=== PATIENT | female | born 1955 | race Caucasian/White ===

== ENCOUNTER → 2016-05-11 | Outpatient (CLI) | payer MEDICARE ==
[2016-05-11 14:57] LABS: HEMATOCRIT 40.1 % (36.0-47.0); HEMOGLOBIN 13.3 g/dL (12.0-15.5); HGB HCT DIFFERENCE -0.2; MEAN CORPUSCULAR HGB CONC 33.2 g/dL (32.0-36.0); MEAN CORPUSCULAR VOLUME 93 fl (80-97); RED CELL DISTRIBUTION WIDTH 13.5 % (11.5-14.0)
[2016-05-11 15:06] LABS: APPEARANCE,URINE CLEAR; BILIRUBIN,URINE NEGATIVE (NEGATIVE); GLUCOSE, URINE NEGATIVE (NEGATIVE); KETONES,URINE NEGATIVE (NEGATIVE); LEUKOCYTE ESTERASE,URINE NEGATIVE (NEGATIVE); NITRITE,URINE NEGATIVE (NEGATIVE); PROTEIN,URINE NEGATIVE (NEGATIVE); URINE SPECIFIC GRAVITY 1.008; UROBILINOGEN,URINE NEGATIVE mg/dL (<2.0)
[2016-05-11 15:23] LABS: ALANINE AMINOTRANSFERASE 18 U/L (9-52); ALBUMIN 4.6 g/dL (3.5-5.0); ALKALINE PHOSPHATASE 79 U/L (38-126); ANION GAP 11 (5-19); ASPARTATE AMINO TRANSFERASE 23 U/L (14-36); BILIRUBIN,TOTAL 0.4 mg/dL (0.2-1.3); BLOOD UREA NITROGEN 10 mg/dL (7-20); CALCIUM 9.5 mg/dL (8.4-10.2); CARBON DIOXIDE 25 mmol/L (22-30); CHLORIDE 105 mmol/L (98-107); CREATININE RESULT 0.78 mg/dL (0.52-1.25); GLUCOSE 75 mg/dL (75-110); POTASSIUM 4.4 mmol/L (3.6-5.0); SODIUM 141.2 mmol/L (137-145); TOTAL PROTEIN 7.3 g/dL (6.3-8.2)
[2016-05-11 15:28] LABS: ALCOHOL < 10 mg/dL (NONE DETECTED)
[2016-05-11 15:36] LABS: URINE BARBITURATES SCREEN NEGATIVE; URINE OPIATES LOW NEGATIVE; URINE PHENCYCLIDINE SCREEN NEGATIVE
[2016-05-11 15:46] LABS: URINE METHADONE SCREEN UNCONFIRMED POSITIVE
== END ==
LOC: OD 13:31
PROVIDERS: ATTEND Nurse Practitioner Psychiatric/Mental Health
DX: F41.1 Generalized anxiety disorder (principal)
CPT/HCPCS: 36415; 80053; 80307; 81001; 84443; 85027

== ENCOUNTER → 2016-09-14 | Outpatient (CLI) | payer MEDICARE ==
--- NOTE | 2016-09-14 13:07 | RADIOLOGY REPORT (SQ) ---
EXAM DESCRIPTION: CHEST PA/LAT COMPLETED DATE/TIME: 09/14/2016 12:35 pm REASON FOR STUDY: BRONCHITIS VS PNEUMONIA COMPARISON: 01/13/2016 EXAM PARAMETERS: NUMBER OF VIEWS: two views TECHNIQUE: Digital Frontal and Lateral radiographic views of the chest acquired. RADIATION DOSE: NA LIMITATIONS: none FINDINGS: LUNGS AND PLEURA: No opacities, masses or pneumothorax. No pleural effusion. MEDIASTINUM AND HILAR STRUCTURES: No masses or contour abnormalities. HEART AND VASCULAR STRUCTURES: Heart normal size. No evidence for failure. BONES: No acute findings. HARDWARE: None in the chest. OTHER: No other significant finding. IMPRESSION: NO SIGNIFICANT RADIOGRAPHIC FINDING IN THE CHEST. TECHNICAL DOCUMENTATION: JOB ID: [id number] [employer]- All Rights Reserved
[2016-09-14 13:16] LABS: ABSOLUTE EOSINOPHILS # (AUTO) 0.4 10^3/uL (0.0-0.6); ABSOLUTE LYMPHOCYTES (AUTO) 3.1 10^3/uL (0.5-4.7); ABSOLUTE MONOCYTES (AUTO) 0.5 10^3/uL (0.1-1.4); ABSOLUTE NEUT (AUTO) 4.3 10^3/uL (1.7-8.2); BASOPHILS % (AUTO) 0.5 % (0-2); EOSINOPHILS % (AUTO) 4.8 % (0-6); HEMATOCRIT 42.7 % (36.0-47.0); HEMOGLOBIN 14.2 g/dL (12.0-15.5); HGB HCT DIFFERENCE -0.1; LYMPHOCYTES % (AUTO) 37.2 % (13-45); MEAN CORPUSCULAR HGB CONC 33.3 g/dL (32.0-36.0); MEAN CORPUSCULAR VOLUME 90 fl (80-97); MONOCYTES % (AUTO) 5.8 % (3-13); RED BLOOD COUNT 4.74 10^6/uL (3.72-5.28); RED CELL DISTRIBUTION WIDTH 14.3 % (11.5-14.0); SEGMENTED NEUTROPHILS % (AUTO) 51.7 % (42-78); WHITE BLOOD COUNT 8.3 10^3/uL (4.0-10.5)
[2016-09-14 13:37] LABS: ALANINE AMINOTRANSFERASE 26 U/L (9-52); ALBUMIN 4.4 g/dL (3.5-5.0); ALKALINE PHOSPHATASE 79 U/L (38-126); ANION GAP 12 (5-19); ASPARTATE AMINO TRANSFERASE 35 U/L (14-36); BILIRUBIN,DIRECT 0.3 mg/dL (0.0-0.4); BILIRUBIN,TOTAL 0.4 mg/dL (0.2-1.3); BLOOD UREA NITROGEN 15 mg/dL (7-20); CALCIUM 9.9 mg/dL (8.4-10.2); CARBON DIOXIDE 21 mmol/L (22-30); CHLORIDE 105 mmol/L (98-107); CREATININE RESULT 0.62 mg/dL (0.52-1.25); GLUCOSE 93 mg/dL (75-110); POTASSIUM 4.4 mmol/L (3.6-5.0); SODIUM 138.2 mmol/L (137-145); TOTAL PROTEIN 7.3 g/dL (6.3-8.2)
== END ==
LOC: RAD 12:21
PROVIDERS: ATTEND Obstetrics & Gynecology
DX: K52.9 Noninfective gastroenteritis and colitis, unspecified (principal); E86.0 Dehydration; J40 Bronchitis, not specified as acute or chronic
CPT/HCPCS: 36415; 71020; 80053; 85025

== ENCOUNTER 2016-12-17 21:58 | Emergency (ER) | payer MEDICARE ==
[2016-12-17] MEDS ORDERED: OXYCODONE HCL IR 5 MG TABLET PO ONE (22:47)
--- NOTE | 2016-12-17 22:48 | ER Document Report ---
HPI - HPI Patient complains to provider of: right ankle injury Pain Level: 3 Context: Patient is a 61-year-old female comes emergency department by EMS for chief complaint of right ankle injury. She states she was walking her dog and she inverted her right ankle accidentally because it was dark. She denies knee pain , hip pain, or any other injuries. She does not take a blood thinner. Past medical history of hypothyroidism, hyperlipidemia, and chronic pain in her back and hips. She also has fractured the same ankle multiple times. - REPRODUCTIVE LMP: na Reproductive: DENIES: : - DERM Skin Color: Normal Past Medical History - General Information source: Patient - Social History Smoking Status: Never Smoker Drug Abuse: None Lives with: Family Family History: Reviewed & Not Pertinent Patient has suicidal ideation: No Patient has homicidal ideation: No - Past Medical History Cardiac Medical History: Reports: Hx Coronary Artery Disease, Hx Heart Attack - possible. Denies: Hx Congestive Heart Failure, Hx Hypertension Pulmonary Medical History: Reports: Hx Bronchitis, Hx COPD Denies: Hx Asthma, Hx Pneumonia, Hx Tuberculosis Neurological Medical History: Denies: Hx Seizures Endocrine Medical History: Reports: Hx Graves' Disease - Treated with I-131, Hx Hypothyroidism Renal/ Medical History: Denies: Hx End Stage Renal Disease, Hx Kidney Stones, Hx Peritoneal Dialysis GI Medical History: Reports: Hx Hepatitis - HEP C.. Denies: Hx Cirrhosis, Hx Gastroesophageal Reflux Disease, Hx Ulcer Musculoskeltal Medical History: Reports Hx Arthritis - Degenerative disc disease and osteoarthritis., Denies Hx Multiple Sclerosis Psychiatric Medical History: Reports: Hx Anxiety, Hx Depression - lexapro, wellbutrin Denies: Hx Bipolar Disorder, Hx Schizophrenia Infectious Medical History: Reports: Hx Hepatitis - HEP C. Past Surgical History: Reports: Hx Coronary Stent, Hx Orthopedic Surgery - left ankle, Hx Thyroid Surgery - radioactive Isotopes, Hx Tonsillectomy - Immunizations Immunizations up to date: Yes Hx Diphtheria, Pertussis, Tetanus Vaccination: Yes Vertical Provider Document - CONSTITUTIONAL General Appearance: WD/WN, No Apparent Distress - INFECTION CONTROL TRAVEL OUTSIDE OF THE [place] IN LAST 30 DAYS: No - HEENT HEENT: Atraumatic, Normocephalic - NECK Neck: Normal Inspection - RESPIRATORY Respiratory: Breath Sounds Normal, No Respiratory Distress O2 Sat by Pulse Oximetry: 96 - CARDIOVASCULAR Cardiovascular: Regular Rate, Regular Rhythm - GI/ABDOMEN Gastrointestinal: Abdomen Soft, Abdomen Non-Tender - BACK Back: Normal Inspection - MUSCULOSKELETAL/EXTREMETIES Musculoskeletal/Extremeties: Tender - Tenderness and soft tissue swelling mainly over the right lateral malleolus and slightly over the dorsal aspect of the foot at the ankle. No open wounds, normal capillary refill and sensation, normal foot and ankle exam otherwise, normal leg, knee, hip exam. - DERM Integumentary: Warm, Dry Course - Re-evaluation Re-evalutation: X-ray questionable for new fracture versus old fracture which did not heal. There is soft tissue swelling. Because of patient's injury, pain, and soft tissue swelling the area will be treated for suspected new fracture. Immobilizing splint placed, patient states that she has orthopedic she plans on following up with, she was given a CD of her report. Patient is already on pain management and in a contract with her primary care provider. Discussed follow-up and return precautions. Patient states understanding and agreement. - Vital Signs Vital signs: Temp Pulse Resp BP Pulse Ox 97.7 F 83 20 119/74 96 12/17/16 22:04 12/17/16 22:04 12/17/16 22:04 12/17/16 22:04 12/17/16 22:04 Procedures - Immobilization Right ankle Pre-Proc Neuro Vasc Exam: Normal Immobilizer type: Posterior ankle Performed by: RN Post-Proc Neuro Vasc Exam: Normal Alignment checked and good: Yes Discharge - Discharge Clinical Impression: Right ankle injury Qualifiers: Encounter type: initial encounter Qualified Code(s): S99.911A - Unspecified injury of right ankle, initial encounter Condition: Stable Disposition: HOME, SELF-CARE Additional Instructions: The injury, exam, soft tissue swelling, and questionable new versus non-healed fracture is concerning for a new fracture. Wear the splint, follow-up with orthopedics in the next several days for additional evaluation and management. Return to emergency department for any concerning symptoms. Referrals: MELVA SNOW MD [Primary Care Provider] - Follow up as needed ORTHOPEDICS [Provider Group] - Follow up in 3-5 days
--- NOTE | 2016-12-17 23:25 | RADIOLOGY REPORT (SQ) ---
EXAM DESCRIPTION: ANKLE RIGHT COMPLETE COMPLETED DATE/TIME: 12/17/2016 11:10 pm REASON FOR STUDY: Pain s/p injury COMPARISON: 08/24/2015 NUMBER OF VIEWS: Three views. TECHNIQUE: AP, lateral, and oblique radiographic images acquired of the right ankle. LIMITATIONS: None. FINDINGS: MINERALIZATION: Normal. BONES: Possible re- fracture of the inferior aspect of the lateral malleolus versus chronic partial n onunion. No dislocation. No worrisome bone lesions. JOINTS: Moderate joint effusion. SOFT TISSUES: Moderate lateral soft tissue swelling. No foreign body. OTHER: No other significant finding. IMPRESSION: Possible re- fracture of the inferior aspect of the lateral malleolus versus chronic par tial nonunion. Moderate joint effusion. TECHNICAL DOCUMENTATION: JOB ID: [id number] [employer]- All Rights Reserved
--- NOTE | 2016-12-17 23:27 | RADIOLOGY REPORT (SQ) ---
EXAM DESCRIPTION: HIP RIGHT AP/LATERAL COMPLETED DATE/TIME: 12/17/2016 11:10 pm REASON FOR STUDY: Chronic pain COMPARISON: None. NUMBER OF VIEWS: Two views. TECHNIQUE: AP pelvis and additional frog-leg view of the right hip. LIMITATIONS: None. FINDINGS: MINERALIZATION: Normal. RIGHT HIP: No fracture or dislocation. No worrisome bone lesions. LEFT HIP: No fracture or dislocation. No worrisome bone lesions. PUBIS AND ISCHIUM: No fracture. PELVIS: No fracture. SACRUM: No fracture or dislocation. No worrisome bone lesions. LOWER LUMBAR SPINE: No fracture or dislocation. No worrisome bone lesions. No significant disc disea se. SOFT TISSUES: No findings. OTHER: No other significant finding. IMPRESSION: NO RADIOGRAPHIC EVIDENCE OF ACUTE INJURY. TECHNICAL DOCUMENTATION: JOB ID: [id number] [employer]- All Rights Reserved
[2016-12-18] MEDS ORDERED: HYDROMORPHONE HCL INJ/PF 2 MG/ML AMPULE IM ONE (00:38)
[2016-12-18 01:59] VITALS: BP 121/78
== END 2016-12-18 01:30 | disposition home or self-care (01) ==
LOC: ER 21:58
PROC: 2W3QX1Z Immobilization of Right Lower Leg using Splint (ICD-10-PCS; principal; 2016-12-17)
DX: S99.919A Unspecified injury of unspecified ankle, initial encounter (principal); X50.0XXA Overexertion from strenuous movement or load, initial encounter; Y93.K1 Activity, walking an animal; Y92.009 Unspecified place in unspecified non-institutional (private) residence as the place of occurrence of the external cause; I25.10 Atherosclerotic heart disease of native coronary artery without angina pectoris; I10 Essential (primary) hypertension; J44.9 Chronic obstructive pulmonary disease, unspecified; Z95.5 Presence of coronary angioplasty implant and graft; Z87.81 Personal history of (healed) traumatic fracture; Z98.890 Other specified postprocedural states
CPT/HCPCS: 99284; 96372; 73610; 73502; 29515; J1170; A9270

== ENCOUNTER 2017-10-28 16:20 | Emergency (ER) | payer MEDICARE ==
[2017-10-28 16:28] VITALS: BP 136/79
[2017-10-28] MEDS ORDERED: IPRATROPIUM/ALBUTEROL 0.5-2.5 MG/3 ML AMPUL NEB ONE (16:51)
[2017-10-28] MEDS ORDERED: BENZONATATE 100 MG CAPSULE PO ONE (16:52)
[2017-10-28] MEDS ORDERED: PREDNISONE 20 MG TABLET PO ONE (16:52)
[2017-10-28] MEDS ORDERED: LEVOFLOXACIN 500 MG TABLET PO ONE (16:52)
--- NOTE | 2017-10-28 16:57 | ER Document Report ---
ED General - General Chief Complaint: Productive Cough Stated Complaint: COUGH Time Seen by Provider: 10/28/17 16:41 Notes: 62-year-old female PMH COPD here with complaints of productive cough (green sputum) over the past few weeks. She did see her PCP and PCP placed her on Keflex which she has finished and her symptoms have not improved. She has tried her home albuterol inhaler with not much relief. She no longer has any fevers or chills however the cough persists and it is bothering her. No shortness of breath or chest pain/tightness. She does still smoke 1-1/2 packs daily. TRAVEL OUTSIDE OF THE [place] IN LAST 30 DAYS: No - Related Data Allergies/Adverse Reactions: haloperidol [From Haldol] Allergy (Verified 10/28/17 16:22) latex [Latex] Allergy (Verified 10/28/17 16:21) adhesive [Adhesive] Adverse Reaction (Verified 10/28/17 16:21) chromic sutures Allergy (Intermediate, Uncoded 08/24/15 17:39) developed an absess Past Medical History - Social History Smoking Status: Current Every Day Smoker Chew tobacco use (# tins/day): No Frequency of alcohol use: None Drug Abuse: None Family History: Reviewed & Not Pertinent Patient has suicidal ideation: No Patient has homicidal ideation: No - Past Medical History Cardiac Medical History: Reports: Hx Coronary Artery Disease, Hx Heart Attack - possible. Denies: Hx Congestive Heart Failure, Hx Hypertension Pulmonary Medical History: Reports: Hx Bronchitis, Hx COPD Denies: Hx Asthma, Hx Pneumonia, Hx Tuberculosis Neurological Medical History: Denies: Hx Seizures Endocrine Medical History: Reports: Hx Graves' Disease - Treated with I-131, Hx Hypothyroidism Renal/ Medical History: Denies: Hx End Stage Renal Disease, Hx Kidney Stones, Hx Peritoneal Dialysis GI Medical History: Reports: Hx Hepatitis - HEP C.. Denies: Hx Cirrhosis, Hx Gastroesophageal Reflux Disease, Hx Ulcer Musculoskeletal Medical History: Reports Hx Arthritis - Degenerative disc disease and osteoarthritis., Denies Hx Multiple Sclerosis Psychiatric Medical History: Reports: Hx Anxiety, Hx Depression - lexapro, wellbutrin Denies: Hx Bipolar Disorder, Hx Schizophrenia Infectious Medical History: Reports: Hx Hepatitis - HEP C. Past Surgical History: Reports: Hx Coronary Stent, Hx Orthopedic Surgery - left ankle, Hx Thyroid Surgery - radioactive Isotopes, Hx Tonsillectomy - Immunizations Immunizations up to date: Yes Hx Diphtheria, Pertussis, Tetanus Vaccination: Yes Review of Systems - Review of Systems Notes: See history of present illness for pertinent positive review of systems; otherwise all review of systems have been reviewed and are negative Physical Exam - Vital signs Vitals: Temp Pulse Resp BP Pulse Ox 99.0 F 77 17 136/79 H 95 10/28/17 16:26 10/28/17 16:26 10/28/17 16:26 10/28/17 16:26 10/28/17 16:26 - Notes Notes: PHYSICAL EXAMINATION: GENERAL: Well-appearing and in no acute distress. HEAD: Atraumatic, normocephalic. EYES: Pupils equal round and reactive to light, extraocular movements intact, sclera anicteric, conjunctiva are normal. ENT: nares patent, oropharynx clear without exudates. Moist mucous membranes. NECK: Normal range of motion, supple without lymphadenopathy LUNGS: CTAB and equal. Minimal end expiratory wheezes bilaterally but no rales or rhonchi. HEART: Regular rate and rhythm without murmurs ABDOMEN: Soft, no tenderness. No facial grimacing/wincing upon palpation. No guarding, no rebound. EXTREMITIES: Normal range of motion, no pitting edema. No cyanosis. NEUROLOGICAL: Cranial nerves grossly intact. Normal sensory/motor exams. PSYCH: Normal mood, normal affect. SKIN: Warm, Dry, normal turgor, no rashes or lesions noted Course - Re-evaluation Re-evalutation: 10/28/17 16:55 MEDICAL DECISION MAKING: Concern for COPD exacerbation versus pneumonia versus bronchitis We will give a neb treatment here and Levaquin/prednisone She has taken Levaquin in past with complete resolution of similar symptoms For this reason, I will prescribe her Levaquin prednisone for her symptoms Instructed patient on fever control with Tylenol and/or (if applicable) Motrin Also discussed keeping hydrated with water or Gatorade/Pedialyte Instructed follow-up PCP next day or few Patient understands and agrees to the plan of care - Vital Signs Vital signs: Temp Pulse Resp BP Pulse Ox 99.0 F 77 17 136/79 H 95 10/28/17 16:26 10/28/17 16:26 10/28/17 16:26 10/28/17 16:26 10/28/17 16:26 Discharge - Discharge Clinical Impression: Cough Condition: Good Disposition: HOME, SELF-CARE Additional Instructions: You were seen in the emergency department at [facility]. Finish the antibiotics/steroids and do not skip any doses. Please followup with your primary physician in the next few days for further management/evaluation. Please return to the emergency department for worsening of symptoms or any symptom that you deem to be concerning or life-threatening. Thank you for allowing us to be part of your care. Prescriptions: Benzonatate [Tessalon Perles 100 mg Capsule] 100 mg PO Q8HP PRN #40 capsule PRN Reason: Levofloxacin [Levaquin 750 mg Tablet] 750 mg PO DAILY #10 tablet Prednisone [Deltasone 20 mg Tablet] 3 tab PO DAILY 4 Days tablet Referrals: MELVA SNOW MD [Primary Care Provider] - Follow up as needed
[2017-10-28] MEDS ORDERED: ONDANSETRON 4 MG TAB.RAPDIS PO ONE (17:06)
== END 2017-10-28 17:21 | disposition home or self-care (01) ==
LOC: ER 16:20
DX: R05 Cough (principal); I25.10 Atherosclerotic heart disease of native coronary artery without angina pectoris; J44.9 Chronic obstructive pulmonary disease, unspecified; Z95.5 Presence of coronary angioplasty implant and graft; F17.200 Nicotine dependence, unspecified, uncomplicated; Z88.8 Allergy status to other drugs, medicaments and biological substances; Z91.040 Latex allergy status
CPT/HCPCS: 94640; 99283; A9270 ×5; J7512; J7620; S0119

== ENCOUNTER 2017-11-01 12:01 | Emergency (ER) | payer MEDICARE ==
[2017-11-01] MEDS ORDERED: ACTIVATED CHARCOAL 25 GM BOTTLE PO ONE ×2 (12:17→12:30)
[2017-11-01] MEDS ORDERED: NORMAL SALINE 1000 ML 1,000 ML IV ONE (12:18)
--- NOTE | 2017-11-01 12:20 | ER Document Report ---
ED Medical Screen (RME) - General Chief Complaint: Possible Overdose Stated Complaint: POSSIBLE OVERDOSE Time Seen by Provider: 11/01/17 12:11 TRAVEL OUTSIDE OF THE [place] IN LAST 30 DAYS: No - HPI Patient complains to provider of: Intentional overdose Notes: 11/01/17 12:18 Patient is a 62-year-old female who presents to the emergency room after intentional overdose of approximately 20 gabapentin 600 mg and 12 BuSpar 15 mg, patient did this approximately 1 hour prior to arrival in the department, admits that it was a suicide attempt as she is feeling overwhelmed, helpless and hopeless, patient admits to being a recovering addict who has had a recent relapse and is using basically anything she can get her hands on on the street I placed up call to [place] poison control, spoke with Beronica, who recommends patient receive activated charcoal, had EKG, cardiac monitoring, 4 hour Tylenol ingestion levels, salicylate level, electrolytes, concerns for gabapentin ingestion 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 The patient will be seen and fully evaluated, including a full history and physical exam, by a provider ( in Main ED or Fast Track) when a room becomes available. - Related Data Allergies/Adverse Reactions: haloperidol [From Haldol] Allergy (Verified 10/28/17 16:22) latex [Latex] Allergy (Verified 10/28/17 16:21) adhesive [Adhesive] Adverse Reaction (Verified 10/28/17 16:21) chromic sutures Allergy (Intermediate, Uncoded 08/24/15 17:39) developed an absess Past Medical History - Past Medical History Cardiac Medical History: Reports: Hx Coronary Artery Disease, Hx Heart Attack - possible. Denies: Hx Congestive Heart Failure, Hx Hypertension Pulmonary Medical History: Reports: Hx Bronchitis, Hx COPD Denies: Hx Asthma, Hx Pneumonia, Hx Tuberculosis Neurological Medical History: Denies: Hx Seizures Endocrine Medical History: Reports: Hx Graves' Disease - Treated with I-131, Hx Hypothyroidism Renal/ Medical History: Denies: Hx End Stage Renal Disease, Hx Kidney Stones, Hx Peritoneal Dialysis GI Medical History: Reports: Hx Hepatitis - HEP C.. Denies: Hx Cirrhosis, Hx Gastroesophageal Reflux Disease, Hx Ulcer Musculoskeltal Medical History: Reports Hx Arthritis - Degenerative disc disease and osteoarthritis., Denies Hx Multiple Sclerosis Psychiatric Medical History: Reports: Hx Anxiety, Hx Depression - lexapro, wellbutrin Denies: Hx Bipolar Disorder, Hx Schizophrenia Infectious Medical History: Reports: Hx Hepatitis - HEP C. Past Surgical History: Reports: Hx Coronary Stent, Hx Orthopedic Surgery - left ankle, Hx Thyroid Surgery - radioactive Isotopes, Hx Tonsillectomy - Immunizations Immunizations up to date: Yes Hx Diphtheria, Pertussis, Tetanus Vaccination: Yes Doctor's Discharge - Discharge Referrals: MELVA SNOW MD [Primary Care Provider] - Follow up as needed
[2017-11-01 12:40] LABS: ABSOLUTE EOSINOPHILS # (AUTO) 0.1 10^3/uL (0.0-0.6); ABSOLUTE LYMPHOCYTES (AUTO) 1.8 10^3/uL (0.5-4.7); ABSOLUTE MONOCYTES (AUTO) 0.3 10^3/uL (0.1-1.4); ABSOLUTE NEUT (AUTO) 10.3 10^3/uL (1.7-8.2); BASOPHILS % (AUTO) 0.4 % (0-2); EOSINOPHILS % (AUTO) 0.6 % (0-6); HEMATOCRIT 45.9 % (36.0-47.0); HEMOGLOBIN 15.8 g/dL (12.0-15.5); LYMPHOCYTES % (AUTO) 14.5 % (13-45); MEAN CORPUSCULAR HEMOGLOBIN 32.7 pg (27.0-33.4); MEAN CORPUSCULAR HGB CONC 34.4 g/dL (32.0-36.0); MEAN CORPUSCULAR VOLUME 95 fl (80-97); MONOCYTES % (AUTO) 2.6 % (3-13); PLATELET COUNT 408 10^3/uL (150-450); RED BLOOD COUNT 4.82 10^6/uL (3.72-5.28); RED CELL DISTRIBUTION WIDTH 13.8 % (11.5-14.0); SEGMENTED NEUTROPHILS % (AUTO) 81.9 % (42-78); TOTAL CELLS COUNTED % (AUTO) 100 %; WHITE BLOOD COUNT 12.6 10^3/uL (4.0-10.5)
[2017-11-01 13:00] LABS: APPEARANCE,URINE CLEAR; BILIRUBIN,URINE NEGATIVE (NEGATIVE); COLOR,URINE YELLOW; GLUCOSE, URINE NEGATIVE (NEGATIVE); KETONES,URINE NEGATIVE (NEGATIVE); LEUKOCYTE ESTERASE,URINE NEGATIVE (NEGATIVE); NITRITE,URINE NEGATIVE (NEGATIVE); PROTEIN,URINE NEGATIVE (NEGATIVE); UROBILINOGEN,URINE NEGATIVE mg/dL (<2.0)
[2017-11-01 13:01] LABS: ALANINE AMINOTRANSFERASE 34 U/L (9-52); ALKALINE PHOSPHATASE 87 U/L (38-126); ANION GAP 16 (5-19); ASPARTATE AMINO TRANSFERASE 38 U/L (14-36); BILIRUBIN,DIRECT 0.5 mg/dL (0.0-0.4); BILIRUBIN,TOTAL 0.5 mg/dL (0.2-1.3); BLOOD UREA NITROGEN 12 mg/dL (7-20); CALCIUM 10.5 mg/dL (8.4-10.2); CARBON DIOXIDE 26 mmol/L (22-30); CHLORIDE 105 mmol/L (98-107); GLUCOSE 94 mg/dL (75-110); POTASSIUM 3.6 mmol/L (3.6-5.0); SALICYLATE 1.9 mg/dL (2.0-20.0); SODIUM 146.7 mmol/L (137-145); TOTAL PROTEIN 8.5 g/dL (6.3-8.2)
[2017-11-01 13:03] LABS: ACETAMINOPHEN < 10 ug/mL (10-30); ALCOHOL < 10 mg/dL (NONE DETECTED)
[2017-11-01 13:13] LABS: URINE AMPHETAMINES SCREEN NEGATIVE; URINE BARBITURATES SCREEN UNCONFIRMED POSITIVE; URINE BENZODIAZEPINES SCREEN UNCONFIRMED POSITIVE; URINE COCAINE SCREEN NEGATIVE; URINE MARIJUANA (THC) SCREEN NEGATIVE; URINE METHADONE SCREEN NEGATIVE; URINE PHENCYCLIDINE SCREEN NEGATIVE
[2017-11-01] MEDS ORDERED: IPRATROPIUM/ALBUTEROL 0.5-2.5 MG/3 ML AMPUL NEB ONE (13:55)
--- NOTE | 2017-11-01 13:56 | ER Document Report ---
ED General - General Chief Complaint: Possible Overdose Stated Complaint: POSSIBLE OVERDOSE Time Seen by Provider: 11/01/17 12:11 TRAVEL OUTSIDE OF THE [place] IN LAST 30 DAYS: No - HPI Patient complains to provider of: Psychiatric evaluation intentional overdose Notes: Patient has a history of drug abuse. Patient states whenever she becomes things does have a deep depression which she is not right now. Patient admits to taking a large amount gabapentin and buspar prior to arrival. Patient otherwise upon my evaluation initially is resting comfortably however when discussing her situation does become tearful however is easily redirected. Patient denies any fevers chills nausea vomiting diarrhea. Patient states no pain in her chest or in her abdomen. Patient states under "a lot of stressors" this is a reason why she took all of her pills. Patient states she has been multiple detox facilities in the past does not admit any inpatient psychiatric facilities were psychiatric providers. Patient states her PCP is Dr. Snow Patient was evaluated by the dock in triage and did contact poison control. Please refer to her note below Patient is a 62-year-old female who presents to the emergency room after intentional overdose of approximately 20 gabapentin 600 mg and 12 BuSpar 15 mg, patient did this approximately 1 hour prior to arrival in the department, admits that it was a suicide attempt as she is feeling overwhelmed, helpless and hopeless, patient admits to being a recovering addict who has had a recent relapse and is using basically anything she can get her hands on on the street I placed up call to [place] poison control, spoke with Beronica, who recommends patient receive activated charcoal, had EKG, cardiac monitoring, 4 hour Tylenol ingestion levels, salicylate level, electrolytes, 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 with hypotension, bradycardia and possible seizures, if seizures do occur the first line treatment would be benzodiazepine and second line would be phenobarbital - Related Data Allergies/Adverse Reactions: haloperidol [From Haldol] Allergy (Verified 10/28/17 16:22) latex [Latex] Allergy (Verified 10/28/17 16:21) adhesive [Adhesive] Adverse Reaction (Verified 10/28/17 16:21) chromic sutures Allergy (Intermediate, Uncoded 08/24/15 17:39) developed an absess Past Medical History - Social History Smoking Status: Current Every Day Smoker Chew tobacco use (# tins/day): No Frequency of alcohol use: Occasional Drug Abuse: Prescription drugs Family History: Reviewed & Not Pertinent Patient has suicidal ideation: No Patient has homicidal ideation: No - Past Medical History Cardiac Medical History: Reports: Hx Coronary Artery Disease, Hx Heart Attack - possible. Denies: Hx Congestive Heart Failure, Hx Hypertension Pulmonary Medical History: Reports: Hx Bronchitis, Hx COPD Denies: Hx Asthma, Hx Pneumonia, Hx Tuberculosis Neurological Medical History: Denies: Hx Seizures Endocrine Medical History: Reports: Hx Graves' Disease - Treated with I-131, Hx Hypothyroidism Renal/ Medical History: Denies: Hx End Stage Renal Disease, Hx Kidney Stones, Hx Peritoneal Dialysis GI Medical History: Reports: Hx Hepatitis - HEP C.. Denies: Hx Cirrhosis, Hx Gastroesophageal Reflux Disease, Hx Ulcer Musculoskeletal Medical History: Reports Hx Arthritis - Degenerative disc disease and osteoarthritis., Denies Hx Multiple Sclerosis Psychiatric Medical History: Reports: Hx Anxiety, Hx Depression - lexapro, wellbutrin Denies: Hx Bipolar Disorder, Hx Schizophrenia Infectious Medical History: Reports: Hx Hepatitis - HEP C. Past Surgical History: Reports: Hx Coronary Stent, Hx Orthopedic Surgery - left ankle, Hx Thyroid Surgery - radioactive Isotopes, Hx Tonsillectomy - Immunizations Immunizations up to date: Yes Hx Diphtheria, Pertussis, Tetanus Vaccination: Yes Review of Systems - Review of Systems Constitutional: Other - Depression intentional overdose EENT: No symptoms reported Cardiovascular: No symptoms reported Respiratory: No symptoms reported Gastrointestinal: No symptoms reported Genitourinary: No symptoms reported Female Genitourinary: No symptoms reported Musculoskeletal: No symptoms reported Skin: No symptoms reported Hematologic/Lymphatic: No symptoms reported Neurological/Psychological: No symptoms reported Physical Exam - Vital signs Vitals: Pulse Ox 97 11/01/17 12:16 Interpretation: Normal - General General appearance: Appears well, Alert - HEENT Head: Normocephalic, Atraumatic Eyes: Normal Pupils: PERRL - Respiratory Respiratory status: No respiratory distress Chest status: Nontender Breath sounds: Normal Chest palpation: Normal - Cardiovascular Rhythm: Regular Heart sounds: Normal auscultation Murmur: No - Abdominal Inspection: Normal Distension: No distension Bowel sounds: Normal Tenderness: Nontender Organomegaly: No organomegaly - Back Back: Normal, Nontender - Extremities General upper extremity: Normal inspection, Nontender, Normal color, Normal ROM , Normal temperature General lower extremity: Normal inspection, Nontender, Normal color, Normal ROM , Normal temperature, Normal weight bearing. No: Ron's sign - Neurological Neuro grossly intact: Yes Cognition: Normal Orientation: AAOx4 [place] Coma Scale Eye Opening: Spontaneous Joseph Coma Scale Verbal: Oriented [place] Coma Scale Motor: Obeys Commands [place] Coma Scale Total: 15 Speech: Normal Motor strength normal: LUE, RUE, LLE, RLE Sensory: Normal - Psychological Associated symptoms: Normal affect, Normal mood - Skin Skin Temperature: Warm Skin Moisture: Dry Skin Color: Normal Course - Re-evaluation Re-evalutation: 11/01/17 15:20 At this time patient remained stable on the monitor. Patient's laboratory studies shows slight hypernatremia otherwise no critical pathology. Patient will continue to be monitor per portion controls guidelines. If patient remains asymptomatic by 5:00 patient can be medically cleared for psychiatric evaluation. 11/01/17 15:25 - Vital Signs Vital signs: Temp Pulse Resp BP Pulse Ox 18 155/77 H 97 11/01/17 13:06 11/01/17 13:06 11/01/17 13:06 - Laboratory Result Diagrams: 11/01/17 12:20 11/01/17 12:20 Laboratory results interpreted by me: 11/01/17 11/01/17 11/01/17 12:20 12:20 12:41 WBC 12.6 H Hgb 15.8 H Seg Neutrophils % 81.9 H Monocytes % 2.6 L Absolute Neutrophils 10.3 H Sodium 146.7 H Calcium 10.5 H Direct Bilirubin 0.5 H AST 38 H Total Protein 8.5 H Urine Blood SMALL H Salicylates 1.9 L Acetaminophen < 10 L Critical Care Note - Critical Care Note Total time excluding time spent on procedures (mins): 35 Comments: Multiple evaluations patient with intentional overdose requiring cardiac monitoring discussions with poison control Discharge - Discharge Clinical Impression: Suicidal ideation, Cigarette smoker two packs a day or less, Intentional overdose Condition: Fair Disposition: PSYCH HOSP/UNIT Referrals: MELVA SNOW MD [Primary Care Provider] - Follow up as needed
[2017-11-01] MEDS: ALBUTEROL SULFATE 0.083% NEB 2.5 MG/3 ML AMPUL NEB PRN (14:41)
[2017-11-01] MEDS ORDERED: NICOTINE 14 MG/24 HR PATCH.TD24 TD ONE (15:54)
[2017-11-01] MEDS ORDERED: ZIPRASIDONE MESYLATE INJ/PF 20 MG SDV IM ONE (15:57)
--- NOTE | 2017-11-01 21:12 | PSYCHOLOGICAL NOTE ---
Psych Note - Psych Note Psych Note: Reason for Consult: Intentional Overdose Consent Permissions: daughterElizabeth, [phone] Patient is a 62-year-old female who presents to the emergency room after intentional overdose of approximately 20 gabapentin 600 mg and 12 BuSpar 15 mg, patient did this approximately 1 hour prior to arrival in the department, admits that it was a suicide attempt as she is feeling overwhelmed, helpless and hopeless, patient admits to being a recovering addict who has had a recent relapse and is using basically anything she can get her hands on on the street Patient reports "I couldn't take it anymore...the medication...the pills...the emotional pain...sleeping only one or two hours a night...it's too much." She continued to disclosed that she feels like she is a burden and puts financial pressure on her daughter; " I go through my medication to fast and then I have to buy more...I don't have the money so I ask my daughter and she should not have to do that." She reports that she has suffered from depression a "long time" and the first time she attempted suicide was 35 years ago after she had an . she denies any attempts after. She disclosed that she got into drugs but got clean for her daughter and was clean for 15 years, "I had a relapse then but got clean again for another 7 years." The patient reports for the last 10- 11 years she has been "on again and off again" because of health issues that required pain medication to treat which lead back to misuse. Patient is alert and orientated to person, place time and circumstance. Mood is dysphoric with tearful affect. Patient intentional overdosed. She denies homicidal ideation. Delusions are absent and behavior is congruent with an intact reality based presentation (ie organized and linear thought processes). Eye contact is poor. conversational speech is difficult to understand at times because of the patient crying. Intellectual abilities appear to be within normal range. Attention and concentration are poor. Insight, judgment and impulse control is poor. Medication recommendation per [facility]'s contracted psychiatrist Dr. Massimo KINGSTON are as follows: 1. Please discontinue home meds of lexapro, trazodone, Klonopin 2. Please reduce home med Buspar to 10mg twice daily 3. please start zyprexa 5mg twice daily 4. please add cogentin 1mg daily 5. please add Prozac 20mg nightly 6. please add clonidine 0.1mg nightly Diagnosis polysubstance abuse 311 (F32.9) unspecified depressive disorder Impression/Plan: Patient is recommended for IVC. Patient intentional overdosed. She is currently very tearful. Medication recommendations have been provided. Patient will be re-evaluated. Dr. Thayer was consulted on the care and management of this patient; attending physician is in agreement with recommendations and disposition.
--- NOTE | 2017-11-01 22:10 | EKG REPORT ---
SEVERITY:- ABNORMAL ECG - SINUS RHYTHM PROBABLE LEFT ATRIAL ABNORMALITY LEFT VENTRICULAR HYPERTROPHY : Confirmed by: Dee Dee Campbell 01-Nov-2017 22:10:08
[2017-11-01] MEDS ORDERED: BUSPIRONE HCL 10 MG TABLET PO SCH (23:45)
[2017-11-02] MEDS: FLUOXETINE HCL 20 MG CAPSULE PO SCH ×2 (00:30→21:38)
[2017-11-02] MEDS: BENZTROPINE MESYLATE 1 MG TABLET PO SCH (00:30)
[2017-11-02] MEDS: OLANZAPINE 5 MG TABLET PO SCH ×2 (00:30→18:31)
[2017-11-02] MEDS: CLONIDINE HCL 0.1 MG TABLET PO SCH ×2 (00:30→21:38)
[2017-11-02] MEDS: LEVOTHYROXINE SODIUM 0.025 MG TABLET PO SCH (09:09)
[2017-11-02] MEDS: LEVOTHYROXINE SODIUM 0.1 MG TABLET PO SCH (09:09)
[2017-11-02] MEDS: BUSPIRONE HCL 10 MG TABLET PO SCH ×2 (09:10→18:31)
--- NOTE | 2017-11-02 09:19 | ER Document Report ---
Doctor's Note Notes: 11/02/17 09:18 Patient interviewed and examined at bedside, reports feeling slightly better but still having quite a bit of anxiety, still depressed, denies any medical needs this morning, she is requesting denture cream so that she can put her dentures and to eat breakfast, awaiting recommendations from mental health team for disposition
[2017-11-02] MEDS ORDERED: NICOTINE 21 MG/24 HR PATCH.TD24 TD ONE (09:27)
[2017-11-02] MEDS ORDERED: VENLAFAXINE HCL 37.5 MG CAP.SR.24H PO SCH (14:00)
[2017-11-02] MEDS: CHLORPROMAZINE HCL 50 MG TABLET PO PRN ×2 (14:18→21:38)
[2017-11-02] MEDS: ALBUTEROL SULFATE 0.083% NEB 2.5 MG/3 ML AMPUL NEB PRN (21:38)
[2017-11-03] MEDS: BENZTROPINE MESYLATE 1 MG TABLET PO SCH (09:30)
[2017-11-03] MEDS: LEVOTHYROXINE SODIUM 0.025 MG TABLET PO SCH (09:30)
[2017-11-03] MEDS: LEVOTHYROXINE SODIUM 0.1 MG TABLET PO SCH (09:30)
[2017-11-03] MEDS: BUSPIRONE HCL 10 MG TABLET PO SCH (09:31)
[2017-11-03] MEDS: CHLORPROMAZINE HCL 50 MG TABLET PO PRN (09:31)
[2017-11-03] MEDS: OLANZAPINE 5 MG TABLET PO SCH (09:31)
--- NOTE | 2017-11-03 10:08 | ER Document Report ---
Doctor's Note Notes: 11/03/17 10:07 Chart reviewed and patient interviewed. Patient says she no longer feels as suicidal as she did when she was admitted here. Vital signs of all been normal. CBC had a white count of 12,600 without explanation based upon patient' s history and physical. Other labs showed drug screen positive for barbiturates and for benzodiazepines. Patient appears to be medically stable for transfer or discharge. Sunil Sainz MD
[2017-11-03 11:58] VITALS: BP 137/85
--- NOTE | 2017-11-03 19:22 | PSYCHOLOGICAL NOTE ---
Psych Note - Psych Note Psych Note: Psych Note: Reason for visit: Intentional Overdose Patient reported that she slept well the night before, felt much better today. Patient reported that she had 2 separate stays for inpatient a few months back for 28 days each. Patient requested inpatient hospitalization for this stay. Dr. Thayer reviewed some options with the patient. Patient requested some medicine for her anxiety. Patient reports that she received $1300 a month through disability and has her own place.Patient states that she plans to stay with her daughter for a couple of days after discharge. Patient was alert, oriented to person, place, time and circumstance. Patient denied suicidal/homicidal ideation, intent or plan. Thought processes were linear, logical, organized. Conversational speech was within normal limits for rate, tone, and prosody. Eye contact was good. Patient became teary eyed during the interview. Patient was engaged when discussing different hospitalization options with Dr. Thayer. Daughter came into the room during the interview and also wanted to know about different hospitalization options. Diagnosis: Polysubstance abuse 311 (F32.9) Unspecified Depressive Disorder Impression/Plan: Patient is recommended for an additional night of observation ( medications)
== END 2017-11-03 11:58 | disposition home or self-care (01) ==
LOC: ER 12:01
DX: T42.6X2A Poisoning by other antiepileptic and sedative-hypnotic drugs, intentional self-harm, initial encounter (principal); T43.592A Poisoning by other antipsychotics and neuroleptics, intentional self-harm, initial encounter; F17.210 Nicotine dependence, cigarettes, uncomplicated; Z88.8 Allergy status to other drugs, medicaments and biological substances; Z91.040 Latex allergy status; F32.9 Major depressive disorder, single episode, unspecified; F41.9 Anxiety disorder, unspecified; E87.0 Hyperosmolality and hypernatremia; I25.10 Atherosclerotic heart disease of native coronary artery without angina pectoris; J44.9 Chronic obstructive pulmonary disease, unspecified; Z95.5 Presence of coronary angioplasty implant and graft
CPT/HCPCS: 93005; 94640 ×2; 99285; 96372; 96360; 36415; 80307 ×4; 84443; 85025; 80053; 81001; 93010; A9270 ×8; J3486; J7030; J3490; J7620

== ENCOUNTER → 2017-12-04 | Outpatient (CLI) | payer MEDICARE ==
[2017-12-07 12:37] LABS: HEPATITIS C QUANTITATION HCV Not Detected IU/mL (.)
== END ==
LOC: LAB 14:59
PROVIDERS: ATTEND Obstetrics & Gynecology
DX: B19.20 Unspecified viral hepatitis C without hepatic coma (principal)
CPT/HCPCS: 36415; 87522

== ENCOUNTER 2018-01-07 14:44 | Emergency (ER) | payer MEDICARE ==
--- NOTE | 2018-01-07 16:24 | ER Document Report ---
ED Medical Screen (RME) - General Chief Complaint: Suicidal Ideation Stated Complaint: PSYCH EVAL Time Seen by Provider: 01/07/18 14:50 Notes: 62-year-old female with thoughts of wanting to hurt herself. Has a plan to cut her wrist and/or take a bunch of pills. Has had this happen before. Was sent over by Dr. Snow for possible psychiatric admission I have greeted and performed a rapid initial assessment of this patient. A comprehensive ED assessment and evaluation of the patient, analysis of test results and completion of the medical decision making process will be conducted by additional ED providers. TRAVEL OUTSIDE OF THE [place] IN LAST 30 DAYS: No - Related Data Allergies/Adverse Reactions: haloperidol [From Haldol] Allergy (Verified 01/07/18 14:45) latex [Latex] Allergy (Verified 01/07/18 14:45) adhesive [Adhesive] Adverse Reaction (Verified 01/07/18 14:45) chromic sutures Allergy (Intermediate, Uncoded 01/07/18 14:45) developed an absess Past Medical History - Past Medical History Cardiac Medical History: Reports: Hx Coronary Artery Disease, Hx Heart Attack - possible. Denies: Hx Congestive Heart Failure, Hx Hypertension Pulmonary Medical History: Reports: Hx Bronchitis, Hx COPD Denies: Hx Asthma, Hx Pneumonia, Hx Tuberculosis Neurological Medical History: Denies: Hx Seizures Endocrine Medical History: Reports: Hx Graves' Disease - Treated with I-131, Hx Hypothyroidism Renal/ Medical History: Denies: Hx End Stage Renal Disease, Hx Kidney Stones, Hx Peritoneal Dialysis GI Medical History: Reports: Hx Hepatitis - HEP C.. Denies: Hx Cirrhosis, Hx Gastroesophageal Reflux Disease, Hx Ulcer Musculoskeltal Medical History: Reports Hx Arthritis - Degenerative disc disease and osteoarthritis., Denies Hx Multiple Sclerosis Psychiatric Medical History: Reports: Hx Anxiety, Hx Depression - lexapro, wellbutrin Denies: Hx Bipolar Disorder, Hx Schizophrenia Infectious Medical History: Reports: Hx Hepatitis - HEP C. Past Surgical History: Reports: Hx Coronary Stent, Hx Orthopedic Surgery - left ankle, Hx Thyroid Surgery - radioactive Isotopes, Hx Tonsillectomy - Immunizations Immunizations up to date: Yes Hx Diphtheria, Pertussis, Tetanus Vaccination: Yes Physical Exam - Vital signs Vitals: Temp Pulse Resp BP Pulse Ox 98.3 F 75 16 150/71 H 94 01/07/18 14:48 01/07/18 14:48 01/07/18 14:48 01/07/18 14:48 01/07/18 14:48 Course - Vital Signs Vital signs: Temp Pulse Resp BP Pulse Ox 98.3 F 75 16 150/71 H 94 01/07/18 14:48 01/07/18 14:48 01/07/18 14:48 01/07/18 14:48 01/07/18 14:48 Doctor's Discharge - Discharge Referrals: MELVA SNOW MD [Primary Care Provider] - Follow up as needed
[2018-01-07] MEDS ORDERED: LORAZEPAM 1 MG TABLET PO ONE (16:27)
[2018-01-07 16:42] LABS: ABSOLUTE BASOPHILS # (AUTO) 0.1 10^3/uL (0.0-0.2); ABSOLUTE EOSINOPHILS # (AUTO) 0.1 10^3/uL (0.0-0.6); ABSOLUTE LYMPHOCYTES (AUTO) 2.6 10^3/uL (0.5-4.7); ABSOLUTE MONOCYTES (AUTO) 0.4 10^3/uL (0.1-1.4); ABSOLUTE NEUT (AUTO) 3.4 10^3/uL (1.7-8.2); EOSINOPHILS % (AUTO) 1.8 % (0-6); HEMATOCRIT 44.9 % (36.0-47.0); HEMOGLOBIN 15.5 g/dL (12.0-15.5); LYMPHOCYTES % (AUTO) 39.6 % (13-45); MEAN CORPUSCULAR HEMOGLOBIN 32.1 pg (27.0-33.4); MEAN CORPUSCULAR HGB CONC 34.5 g/dL (32.0-36.0); MEAN CORPUSCULAR VOLUME 93 fl (80-97); MONOCYTES % (AUTO) 6.3 % (3-13); PLATELET COUNT 339 10^3/uL (150-450); RED BLOOD COUNT 4.83 10^6/uL (3.72-5.28); RED CELL DISTRIBUTION WIDTH 13.5 % (11.5-14.0); SEGMENTED NEUTROPHILS % (AUTO) 51.3 % (42-78); TOTAL CELLS COUNTED % (AUTO) 100 %; WHITE BLOOD COUNT 6.7 10^3/uL (4.0-10.5)
[2018-01-07 17:04] LABS: ALANINE AMINOTRANSFERASE 18 U/L (9-52); ALBUMIN 4.6 g/dL (3.5-5.0); ALKALINE PHOSPHATASE 79 U/L (38-126); ANION GAP 8 (5-19); ASPARTATE AMINO TRANSFERASE 34 U/L (14-36); BILIRUBIN,DIRECT 0.4 mg/dL (0.0-0.4); BILIRUBIN,TOTAL 0.5 mg/dL (0.2-1.3); BLOOD UREA NITROGEN 6 mg/dL (7-20); CALCIUM 10.1 mg/dL (8.4-10.2); CARBON DIOXIDE 28 mmol/L (22-30); CHLORIDE 103 mmol/L (98-107); GLUCOSE 84 mg/dL (75-110); POTASSIUM 3.9 mmol/L (3.6-5.0); SODIUM 139.1 mmol/L (137-145); TOTAL PROTEIN 7.8 g/dL (6.3-8.2)
[2018-01-07 17:05] LABS: ACETAMINOPHEN < 10 ug/mL (10-30); ALCOHOL < 10 mg/dL (NONE DETECTED)
[2018-01-07 17:20] LABS: FREE T3 1.77 pg/mL (2.77-5.27); FREE T4 (FREE THYROXINE) 0.6 ng/dL (0.78-2.19)
[2018-01-07 17:34] LABS: THYROID STIMULATING HORMONE 17.2 uIU/mL (0.47-4.68)
[2018-01-07] MEDS ORDERED: ZIPRASIDONE MESYLATE INJ/PF 20 MG SDV IM ONE (18:18)
[2018-01-07 18:26] LABS: APPEARANCE,URINE CLEAR; BILIRUBIN,URINE NEGATIVE (NEGATIVE); COLOR,URINE YELLOW; GLUCOSE, URINE NEGATIVE (NEGATIVE); KETONES,URINE NEGATIVE (NEGATIVE); LEUKOCYTE ESTERASE,URINE NEGATIVE (NEGATIVE); NITRITE,URINE NEGATIVE (NEGATIVE); PROTEIN,URINE NEGATIVE (NEGATIVE); URINE SPECIFIC GRAVITY 1.005; UROBILINOGEN,URINE NEGATIVE mg/dL (<2.0)
[2018-01-07] MEDS ORDERED: NICOTINE 21 MG/24 HR PATCH.TD24 TD ONE (18:27)
--- NOTE | 2018-01-07 18:27 | ER Document Report ---
ED Psych Disorder / Suicide - General Chief Complaint: Suicidal Ideation Stated Complaint: PSYCH EVAL Time Seen by Provider: 01/07/18 14:50 Notes: Patient is here because she says she has been feeling suicidal for the past 3 days. She is not sure exactly why. Nothing specifically triggered her feeling this way. She is consider taking an overdose or slitting her wrists. Then, she thinks about her daughter and grandkids and does not want to kill herself. Patient has had previous similar thoughts and has been seen here previously for the same. She is disabled due to back problems and is unable to work. Currently, patient is on Klonopin 1 mg 3 times a day, Prozac 40 mg at bedtime, and she was on Zyprexa 10 mg twice a day, but her primary care provider, Dr. Mancera stopped that medication and started her on Seroquel, which she does not think is helping very much. When patient was seen here last time, she says that an injection of Geodon was very helpful and got her a good night sleep and helped her feel better. TRAVEL OUTSIDE OF THE [place] IN LAST 30 DAYS: No - Related Data Allergies/Adverse Reactions: haloperidol [From Haldol] Allergy (Verified 01/07/18 14:45) latex [Latex] Allergy (Verified 01/07/18 14:45) adhesive [Adhesive] Adverse Reaction (Verified 01/07/18 14:45) chromic sutures Allergy (Intermediate, Uncoded 01/07/18 14:45) developed an absess Past Medical History - Social History Smoking Status: Current Every Day Smoker Frequency of alcohol use: None Drug Abuse: None Family History: Reviewed & Not Pertinent Patient has suicidal ideation: Yes Patient has homicidal ideation: No - Past Medical History Cardiac Medical History: Reports: Hx Coronary Artery Disease, Hx Heart Attack - possible. Denies: Hx Congestive Heart Failure, Hx Hypertension Pulmonary Medical History: Reports: Hx Bronchitis, Hx COPD Endocrine Medical History: Reports: Hx Graves' Disease - Treated with I-131, Hx Hypothyroidism GI Medical History: Reports: Hx Hepatitis - HEP C. Musculoskeletal Medical History: Reports Hx Arthritis - Degenerative disc disease and osteoarthritis. Psychiatric Medical History: Reports: Hx Anxiety, Hx Depression - lexapro, wellbutrin Infectious Medical History: Reports: Hx Hepatitis - HEP C. Past Surgical History: Reports: Hx Coronary Stent, Hx Orthopedic Surgery - left ankle, Hx Thyroid Surgery - radioactive Isotopes, Hx Tonsillectomy - Immunizations Immunizations up to date: Yes Hx Diphtheria, Pertussis, Tetanus Vaccination: Yes Review of Systems - Review of Systems Notes: REVIEW OF SYSTEMS: CONSTITUTIONAL : Denies fever. EENT: Denies eye, ear, nose or mouth or throat pain or other symptoms. CARDIOVASCULAR: Denies chest pain. RESPIRATORY: Denies cough, chest congestion, or shortness of breath. GASTROINTESTINAL: Denies abdominal pain or nausea, vomiting, or diarrhea. GENITOURINARY: Denies difficulty or painful urinating, urinary frequency, blood in urine. MUSCULOSKELETAL: Denies back or neck pain. Denies joint pain or swelling. SKIN: Denies rash or skin lesions. NEUROLOGICAL: Denies LOC or altered mental status. Denies headache. Denies sensory loss or motor deficits. ALL OTHER SYSTEMS REVIEWED AND NEGATIVE. Physical Exam - Vital signs Vitals: Temp Pulse Resp BP Pulse Ox 98.3 F 75 16 150/71 H 94 01/07/18 14:48 01/07/18 14:48 01/07/18 14:48 01/07/18 14:48 01/07/18 14:48 Interpretation: Normal - Notes Notes: PHYSICAL EXAMINATION: GENERAL: Well-appearing, in no acute distress. HEAD: Atraumatic, normocephalic. EYES: Pupils equal round and reactive to light, extraocular movements intact. ENT: oropharynx clear without exudates. Moist mucous membranes. NECK: Normal range of motion, supple. LUNGS: Breath sounds clear and equal bilaterally. Scattered rhonchi bilaterally. No wheezes heard. HEART: Regular rate and rhythm without murmurs. ABDOMEN: Soft, nontender. No guarding or rebound. No masses. BACK: No tenderness throughout entire back. EXTREMITIES: Normal range of motion without pain. No evidence of clots. Negative Homans. NEUROLOGICAL: Normal speech, normal gait. Normal sensory, motor, and reflex exams. Awake, alert, and oriented x3. Cranial nerves normal. PSYCH: Normal mood, normal affect. SKIN: Warm, dry, no rashes. Course - Re-evaluation Re-evalutation: 01/07/18 18:25 Advised the patient that we do not have mental health workers available in the emergency department at this hour. The custom is to make sure the patient is taking care of medically this evening and have patients evaluated in the morning when mental health workers are here to assess the patient. Patient is agreeable with this plan. - Vital Signs Vital signs: Temp Pulse Resp BP Pulse Ox 98.3 F 75 16 150/71 H 94 01/07/18 14:48 01/07/18 14:48 01/07/18 14:48 01/07/18 14:48 01/07/18 14:48 - Laboratory Result Diagrams: 01/07/18 16:33 01/07/18 16:33 Laboratory results interpreted by me: 01/07/18 01/07/18 16:33 16:33 BUN 6 L TSH 17.20 H Free T4 0.60 L Free T3 pg/mL 1.77 L Acetaminophen < 10 L Discharge - Discharge Clinical Impression: Suicidal ideation Referrals: MELVA SNOW MD [Primary Care Provider] - Follow up as needed
[2018-01-07 18:47] LABS: URINE AMPHETAMINES SCREEN NEGATIVE; URINE BARBITURATES SCREEN NEGATIVE; URINE BENZODIAZEPINES SCREEN UNCONFIRMED POSITIVE; URINE COCAINE SCREEN NEGATIVE; URINE MARIJUANA (THC) SCREEN NEGATIVE; URINE METHADONE SCREEN NEGATIVE; URINE PHENCYCLIDINE SCREEN NEGATIVE
[2018-01-07] MEDS ORDERED: FLUOXETINE HCL 20 MG CAPSULE PO SCH (22:00)
[2018-01-08] MEDS ORDERED: HYDROXYZINE PAMOATE 25 MG CAPSULE PO ONE (05:27)
[2018-01-08] MEDS ORDERED: LORAZEPAM 1 MG TABLET PO ONE (06:37)
--- NOTE | 2018-01-08 07:56 | EKG REPORT ---
SEVERITY:- ABNORMAL ECG - SINUS RHYTHM PROBABLE LVH WITH SECONDARY REPOL ABNRM : Confirmed by: Rupinder Aguilar MD 08-Jan-2018 07:55:52
--- NOTE | 2018-01-08 07:56 | EKG REPORT ---
SEVERITY:- ABNORMAL ECG - SINUS RHYTHM CONSIDER LEFT VENTRICULAR HYPERTROPHY : Confirmed by: Rupinder Aguilar MD 08-Jan-2018 07:55:28
--- NOTE | 2018-01-08 09:44 | ER Document Report ---
Doctor's Note Notes: 01/08/18 09:41 Rounds: Chart reviewed and patient interviewed. Patient here for suicidal ideations. She has considered overdosing on her medications and slitting her wrists. Patient has not been taking her recommended medications. In the ED, patient was re-started on her home medications. She is currently on fluoxetine , Vistaril, Ativan, Geodon. On evaluation this morning, vitals are stable. Patient has no complaints. Patient is answering questions appropriately. I discussed the patient with behavioral health. Patient appears medically stable for discharge. We will discharge the patient home with a prescription for her home medications. 01/08/18 09:44
--- NOTE | 2018-01-08 10:00 | PSYCHOLOGICAL NOTE ---
Psych Note - Psych Note Psych Note: Reason for Consult: suicidal ideation Patient is here because she says she has been feeling suicidal for the past 3 days. She is not sure exactly why. Patient discloses that she is been increase of depression, anxiety and panic attacks. She states that she can wake up from a sound sleep in a panic and then cannot fall back asleep after. She discloses that a few months ago she was put on medication here at [facility] and feels that it really worked however her provider recently changed the Zyprexa to Seroquel. She discloses that even her friends and family have noticed that she has been worse since the medication change. Patient discloses passive suicidal ideation (i.e. no plans means or intent) stating that she does not want to live like this, she "just wants to feel better." Patient identifies her family is the reason she does not follow through with her thoughts. Patient is alert and orientated to person, place time and circumstance. Mood is anxious with congruent affect; patient can be seen shaking throughout evaluation. Patient endorses passive suicidal ideation (ie no plans means or intent). She denies homicidal ideation. Delusions are absent and behavior is congruent with an intact reality based presentation (ie organized and linear thought processes). Eye contact is well maintained. conversational speech is within normal rate tone and prosody. Intellectual abilities appear to be within normal range. Attention and concentration are good. Insight, judgment and impulse control is fair. Medication recommendation per [facility]'s contracted psychiatrist Dr. Massimo KINGSTON are as follows: 1. Buspar to 10mg twice daily 2. zyprexa 5mg twice daily 3. cogentin 1mg daily 4. decrease home medication of Prozac to 20mg nightly 5. clonidine 0.1mg nightly 6. decrease clonazepam 1mg qd 7. please stop seroquel Diagnosis polysubstance abuse per history 311 (F32.9) unspecified depressive disorder Impression/Plan: Medication recommendations have been provided and patient will be reevaluated this afternoon. Patient was reevaluated. She reports that she still has anxiety and has not gotten her medication for her thyroid. When discussing medications it was explained that she should not be taking Klonopin as we had discussed in her previous visit that she was abusing them. She confirms that she may actually be going through withdrawal rather than currently having anxiety. She then stated that not only is she withdrawing from Klonopin she is withdrawing for opiates. When asked what meant opiates she was taking she stated that she was taking methadone and "OPs." Impression/Plan: Patient is cleared from acute psychiatric services. Patient does not meet IVC criteria per [place] GS 122C. Patient discloses passive suicidal ideation and confirms that she is most likely going through withdrawal from her Klonopin and opiates. Patient is recommended to follow up with her outpatient mental health services. Patient is encouraged to follow up with substance abuse treatment and was reminded to talk with her prescribing physicians about her addictions during her medication management appointments. Dr. Thayer was consulted and the care and management this patient; attending physician is in agreement with recommendations and disposition.
[2018-01-08] MEDS ORDERED: OLANZAPINE 5 MG TABLET PO ONE (12:54)
[2018-01-08] MEDS ORDERED: BUSPIRONE HCL 10 MG TABLET PO ONE (12:54)
[2018-01-08] MEDS ORDERED: BENZTROPINE MESYLATE 1 MG TABLET PO ONE (12:54)
[2018-01-08] MEDS ORDERED: LEVOTHYROXINE SODIUM 0.112 MG TABLET PO ONE (15:28)
[2018-01-08] MEDS ORDERED: CLONAZEPAM 1 MG TABLET PO ONE (16:45)
[2018-01-08 17:59] VITALS: BP 120/70
== END 2018-01-08 17:59 | disposition home or self-care (01) ==
LOC: ER 14:44
DX: F32.9 Major depressive disorder, single episode, unspecified (principal); R45.851 Suicidal ideations; F41.9 Anxiety disorder, unspecified; J44.9 Chronic obstructive pulmonary disease, unspecified; I25.10 Atherosclerotic heart disease of native coronary artery without angina pectoris; F17.200 Nicotine dependence, unspecified, uncomplicated; Z79.899 Other long term (current) drug therapy; Z88.8 Allergy status to other drugs, medicaments and biological substances; Z95.5 Presence of coronary angioplasty implant and graft
CPT/HCPCS: 93005; 99285; 96372; 36415; 84439; 80307 ×4; 84443; 85025; 80053; 81001; 84481; 93010; A9270 ×9; J3486

== ENCOUNTER → 2019-06-20 | Outpatient (CLI) | payer MEDICARE ==
--- NOTE | 2019-06-20 15:30 | RADIOLOGY REPORT (SQ) ---
EXAM DESCRIPTION: CHEST 2 VIEWS COMPLETED DATE/TIME: 06/20/2019 3:05 pm REASON FOR STUDY: COUGH COMPARISON: 60 17 EXAM PARAMETERS: NUMBER OF VIEWS: two views TECHNIQUE: Digital Frontal and Lateral radiographic views of the chest acquired. RADIATION DOSE: NA LIMITATIONS: none FINDINGS: LUNGS AND PLEURA: No opacities, masses or pneumothorax. No pleural effusion. MEDIASTINUM AND HILAR STRUCTURES: No masses or contour abnormalities. HEART AND VASCULAR STRUCTURES: Heart normal size. No evidence for failure. BONES: No acute findings. HARDWARE: None in the chest. OTHER: No other significant finding. IMPRESSION: NO ACUTE RADIOGRAPHIC FINDING IN THE CHEST. TECHNICAL DOCUMENTATION: JOB ID: [id number] 2010 [employer]- All Rights Reserved Reading location - IP/workstation name: [email or web address]
== END ==
LOC: RAD 14:47
PROVIDERS: ATTEND Obstetrics & Gynecology
DX: J00 Acute nasopharyngitis [common cold] (principal)
CPT/HCPCS: 71046

== ENCOUNTER 2020-04-29 17:22 | Emergency (ER) | payer MEDICARE ==
--- NOTE | 2020-04-29 19:05 | ER Document Report ---
ED Medical Screen (RME) - General Stated Complaint: SKIN PROBLEM, FOOT PAIN Time Seen by Provider: 04/29/20 18:59 Primary Care Provider: MELVA SNOW MD [Primary Care Provider] - Follow up as needed Notes: HPI: 64-year-old female who is nondiabetic presenting for a wound on the lateral left ankle overlying a plate that was placed several years ago that came up approximately 10 days ago. Patient has now developed a large blistered area ove r the entire plantar heel of the left foot. She saw her PCP several days ago and was started on doxycycline with continued worsening of the blistering and the rash. No fever. Patient called her PCP who told her to come to the emergency department to have the area evaluated and possibly lanced PHYSICAL EXAMINATION: There is a scabbed erythematous wound over the lateral malleolus. There is a large blistered area over the plantar heel and calcaneal region I have greeted and performed a rapid initial assessment of this patient. A comprehensive ED assessment and evaluation of the patient, analysis of test results and completion of medical decision making process will be conducted by an additional ED providers. Please note that clinical decision making for this patient was made during the 2019 pandemic of novel coronavirus which caused a significant strain on the healthcare system including at this particular facility. Criteria for admission discharge and level of care decisions as well as treatment decisions have necessarily changed TRAVEL OUTSIDE OF THE [place] IN LAST 30 DAYS: No - Related Data Allergies/Adverse Reactions: haloperidol [From Haldol] Allergy (Verified 01/07/18 14:45) latex [Latex] Allergy (Verified 01/07/18 14:45) adhesive [Adhesive] Adverse Reaction (Verified 01/07/18 14:45) chromic sutures Allergy (Intermediate, Uncoded 01/07/18 14:45) developed an absess Past Medical History - Past Medical History Cardiac Medical History: Reports: Hx Coronary Artery Disease, Hx Heart Attack - possible. Denies: Hx Congestive Heart Failure, Hx Hypertension Pulmonary Medical History: Reports: Hx Bronchitis, Hx COPD Denies: Hx Asthma, Hx Pneumonia, Hx Tuberculosis Neurological Medical History: Denies: Hx Seizures, Hx Parkinson's Disease Endocrine Medical History: Reports: Hx Graves' Disease - Treated with I-131, Hx Hypothyroidism Renal/ Medical History: Denies: Hx End Stage Renal Disease, Hx Kidney Stones, Hx Peritoneal Dialysis GI Medical History: Reports: Hx Hepatitis - HEP C.. Denies: Hx Cirrhosis, Hx Gastroesophageal Reflux Disease, Hx Ulcer Musculoskeltal Medical History: Reports Hx Arthritis - Degenerative disc disease and osteoarthritis., Denies Hx Multiple Sclerosis Psychiatric Medical History: Reports: Hx Anxiety, Hx Depression - lexapro, wellbutrin Denies: Hx Bipolar Disorder, Hx Schizophrenia Infectious Medical History: Reports: Hx Hepatitis - HEP C. Past Surgical History: Reports: Hx Coronary Stent, Hx Orthopedic Surgery - left ankle, Hx Thyroid Surgery - radioactive Isotopes, Hx Tonsillectomy - Immunizations Immunizations up to date: Yes Hx Diphtheria, Pertussis, Tetanus Vaccination: Yes Physical Exam - Vital signs Vitals: Temp Pulse Resp BP Pulse Ox 98.2 F 96 16 129/83 H 97 04/29/20 17:55 04/29/20 17:55 04/29/20 17:55 04/29/20 17:55 04/29/20 17:55 Course - Vital Signs Vital signs: Temp Pulse Resp BP Pulse Ox 98.2 F 96 16 129/83 H 97 04/29/20 17:55 04/29/20 17:55 04/29/20 17:55 04/29/20 17:55 04/29/20 17:55 Doctor's Discharge - Discharge Referrals: MELVA SNOW MD [Primary Care Provider] - Follow up as needed
[2020-04-29 19:43] LABS: ABSOLUTE EOSINOPHILS # (AUTO) 0.2 10^3/uL (0.0-0.6); ABSOLUTE LYMPHOCYTES (AUTO) 3.1 10^3/uL (0.5-4.7); ABSOLUTE MONOCYTES (AUTO) 0.6 10^3/uL (0.1-1.4); ABSOLUTE NEUT (AUTO) 3.3 10^3/uL (1.7-8.2); BASOPHILS % (AUTO) 0.4 % (0-2); EOSINOPHILS % (AUTO) 3.2 % (0-6); HEMATOCRIT 40.8 % (36.0-47.0); HEMOGLOBIN 13.9 g/dL (12.0-15.5); LYMPHOCYTES % (AUTO) 42.5 % (13-45); MEAN CORPUSCULAR HEMOGLOBIN 30.3 pg (27.0-33.4); MEAN CORPUSCULAR HGB CONC 34.1 g/dL (32.0-36.0); MEAN CORPUSCULAR VOLUME 89 fl (80-97); PLATELET COUNT 476 10^3/uL (150-450); RED BLOOD COUNT 4.61 10^6/uL (3.72-5.28); RED CELL DISTRIBUTION WIDTH 13.6 % (11.5-14.0); SEGMENTED NEUTROPHILS % (AUTO) 45.9 % (42-78); TOTAL CELLS COUNTED % (AUTO) 100 %; WHITE BLOOD COUNT 7.2 10^3/uL (4.0-10.5)
[2020-04-29 19:58] LABS: ALBUMIN 4.4 g/dL (3.5-5.0); ALKALINE PHOSPHATASE 112 U/L (38-126); ANION GAP 7 (5-19); ASPARTATE AMINO TRANSFERASE 27 U/L (14-36); BILIRUBIN,DIRECT 0.5 mg/dL (0.0-0.4); BILIRUBIN,TOTAL 0.5 mg/dL (0.2-1.3); BLOOD UREA NITROGEN 17 mg/dL (7-20); C-REACTIVE PROTEIN 40.9 mg/L (<10.0); CALCIUM 10.1 mg/dL (8.4-10.2); CARBON DIOXIDE 32 mmol/L (22-30); CHLORIDE 98 mmol/L (98-107); GLUCOSE 96 mg/dL (75-110); POTASSIUM 4.3 mmol/L (3.6-5.0); TOTAL PROTEIN 8.9 g/dL (6.3-8.2)
--- NOTE | 2020-04-29 20:19 | RADIOLOGY REPORT (SQ) ---
CLINICAL INDICATION: infection. . TECHNIQUE: 3 view(s) were obtained of the left ankle. COMPARISON: None. FINDINGS: No acute displaced fracture is identified of the ankle. Alignment appears anatomic. Joint spaces are within normal limits for age. Remote postsurgical change from stabilization of a lateral malleolar fracture. No bony destruction suggest osteomyelitis. There is soft tissue swelling. IMPRESSION: No evidence of acute displaced fracture of the ankle. No plain radiographic evidence of osteomyelitis
--- NOTE | 2020-04-29 20:19 | RADIOLOGY REPORT (SQ) ---
CLINICAL INDICATION: infection. . TECHNIQUE: 3 view(s) were obtained of the left foot. COMPARISON: None. FINDINGS: No acute displaced fracture is identified of the foot. Alignment appears anatomic. Joint spaces are within normal limits for age. Soft tissue swelling. IMPRESSION: No evidence of acute displaced fracture of the foot. Ankle dictated separately
[2020-04-29 20:24] LABS: ERYTHROCYTE SEDIMENTATION RATE 91 mm/hr (0-30)
[2020-04-29] MEDS ORDERED: OXYCODONE HCL IR 5 MG TABLET PO ONE (21:50)
--- NOTE | 2020-04-29 21:55 | ER Document Report ---
ED Extremity Problem, Lower - General Stated Complaint: SKIN PROBLEM, FOOT PAIN Time Seen by Provider: 04/29/20 18:59 Primary Care Provider: NICK WITT DO [ACTIVE STAFF] - Follow up in 3-5 days Notes: Patient is a 64-year-old female who comes emergency department for chief complaint of pain and swelling to the left foot. She states that she started noticing bruising and some slight swelling to the bottom of the foot and middle of the foot just past the heel around a week ago, she saw her primary care provider several days ago and was placed on doxycycline, she states the area has worsened and become increasingly swollen so she became concerned. She denies drainage from the area, she states areas mainly only painful when walking on it but she does have some slight discomfort when she is not walking on it. She has some healing sores over her left lower leg as well, she has a history of ORIF of the left ankle and she is worried the hardware might be involved. She cannot recall a particular injury. She is not a diabetic. She reports a remote history of treated hepatitis C but states she was cleared. She has no other complaints. TRAVEL OUTSIDE OF THE [place] IN LAST 30 DAYS: No - Related Data Allergies/Adverse Reactions: haloperidol [From Haldol] Allergy (Verified 01/07/18 14:45) latex [Latex] Allergy (Verified 01/07/18 14:45) adhesive [Adhesive] Adverse Reaction (Verified 01/07/18 14:45) chromic sutures Allergy (Intermediate, Uncoded 01/07/18 14:45) developed an absess Past Medical History - General Information source: Patient - Social History Smoking Status: Never Smoker Frequency of alcohol use: None Drug Abuse: None Lives with: Family Family History: Reviewed & Not Pertinent - Past Medical History Cardiac Medical History: Reports: Hx Coronary Artery Disease, Hx Heart Attack - possible. Denies: Hx Congestive Heart Failure, Hx Hypertension Pulmonary Medical History: Reports: Hx Bronchitis, Hx COPD Denies: Hx Asthma, Hx Pneumonia, Hx Tuberculosis Neurological Medical History: Denies: Hx Seizures, Hx Parkinson's Disease Endocrine Medical History: Reports: Hx Graves' Disease - Treated with I-131, Hx Hypothyroidism Renal/ Medical History: Denies: Hx End Stage Renal Disease, Hx Kidney Stones, Hx Peritoneal Dialysis GI Medical History: Reports: Hx Hepatitis - HEP C.. Denies: Hx Cirrhosis, Hx Gastroesophageal Reflux Disease, Hx Ulcer Musculoskeletal Medical History: Reports Hx Arthritis - Degenerative disc disease and osteoarthritis., Denies Hx Multiple Sclerosis Psychiatric Medical History: Reports: Hx Anxiety, Hx Depression - lexapro, wellbutrin Denies: Hx Bipolar Disorder, Hx Schizophrenia Infectious Medical History: Reports: Hx Hepatitis - HEP C. Past Surgical History: Reports: Hx Coronary Stent, Hx Orthopedic Surgery - left ankle, Hx Thyroid Surgery - radioactive Isotopes, Hx Tonsillectomy - Immunizations Immunizations up to date: Yes Hx Diphtheria, Pertussis, Tetanus Vaccination: Yes Review of Systems - Review of Systems Constitutional: No symptoms reported EENT: No symptoms reported Cardiovascular: No symptoms reported Respiratory: No symptoms reported Gastrointestinal: No symptoms reported Genitourinary: No symptoms reported Female Genitourinary: No symptoms reported Musculoskeletal: See HPI Skin: See HPI Hematologic/Lymphatic: No symptoms reported Neurological/Psychological: No symptoms reported Physical Exam - Vital signs Vitals: Temp Pulse Resp BP Pulse Ox 98.2 F 96 16 129/83 H 97 04/29/20 17:55 04/29/20 17:55 04/29/20 17:55 04/29/20 17:55 04/29/20 17:55 - Notes Notes: GENERAL: Alert, interacts well. No acute distress. HEAD: Normocephalic, atraumatic. EYES: Pupils equal, round, and reactive to light. Extraocular movements intact. ENT: Oral mucosa moist, tongue midline. Oropharynx unremarkable. Airway patent. LUNGS: Clear to auscultation bilaterally, no wheezes, rales, or rhonchi. No respiratory distress. Non-tender chest wall. HEART: Regular rate and rhythm. No murmur ABDOMEN: Soft, non-tender. Non-distended. Bowel sounds present in all 4 quadrants. GENITOURINARY: Deferred EXTREMITIES: Hematoma in the left mid plantar aspect of the foot extending over to the left bottom of the foot and along the side of the foot as well. There is mild erythema but no significant warmth, tenderness, or overt cellulitis. No fluctuance or induration. Normal range of motion of the toes, ankle, leg. No edema otherwise. Normal capillary refill and sensation. Unremarkable extremities otherwise. BACK: no cervical, thoracic, lumbar midline tenderness. No saddle anesthesia, normal distal neurovascular exam. Moves all extremities in full range of motion. NEUROLOGICAL: Alert and oriented x3. Normal speech. Cranial nerves II through XII grossly intact. Strength 5/5 in all extremities. PSYCH: Normal affect, normal mood. SKIN: 2 old healing lesions with scabs over the left mid leg. Otherwise unremarkable. Course - Re-evaluation Re-evalutation: CBC does not show leukocytosis, ESR and CRP are borderline, patient has no fever, x-rays without acute findings. On exam patient has a fairly large hematoma along the base and side of the left foot, there is mild erythema but this appears to be irritation, there is no significant heat, severe tenderness, streaking away from the area. Patient is not a diabetic. I do not see signs of infected hematoma, she is already on doxycycline. Patient is walking on this persistently. I discussed with patient. Patient will continue doxycycline, be provided with crutches and recommendations, be referred to orthopedic surgery that she follows with (patient states that she can follow-up without difficulty for additional management). I discussed monitoring, care, return cautions. Patient states appreciation and agreement. - Vital Signs Vital signs: Temp Pulse Resp BP Pulse Ox 98.3 F 88 18 129/79 H 98 04/29/20 22:40 04/29/20 22:40 04/29/20 22:40 04/29/20 22:40 04/29/20 22:40 - Laboratory Results Result Diagrams: 04/29/20 19:19 04/29/20 19:19 Laboratory Results Interpreted: 04/29/20 04/29/20 19:19 19:19 Plt Count 476 H ESR 91 H Sodium 136.7 L Carbon Dioxide 32 H Direct Bilirubin 0.5 H C-Reactive Protein 40.9 H Total Protein 8.9 H Critical Laboratory Results Reviewed: No Critical Results - Radiology Results Critical Radiology Results Reviewed: No Critical Results Discharge - Discharge Clinical Impression: Hematoma of left foot, Skin sore, Left foot pain Condition: Stable Disposition: HOME, SELF-CARE Additional Instructions: The x-rays and hardware do not show any concerning findings. Your exam is consistent with a hematoma, a large blood blister underneath the skin. This was probably from an initial injury and has spread. This can take time to heal. I recommend that you use crutches, protective wrap, elevate whenever possible, and you can also apply warm compresses to help break up the hematoma. Please follow-up with orthopedics referral or your preferred orthopedic provider for close recheck and additional management. The sores on the leg appear to be old healing infections, but this appears to be healing well. Complete the doxycycline as prescribed. Return if you worsen including spreading redness, increased swelling, fever, severe worsening pain, or any other concerning symptoms. Referrals: NICK WITT DO [ACTIVE STAFF] - Follow up in 3-5 days
[2020-04-29 23:39] VITALS: BP 129/79
== END 2020-04-29 22:40 | disposition home or self-care (01) ==
LOC: ER 17:22
DX: S90.32XA Contusion of left foot, initial encounter (principal); M79.672 Pain in left foot; X58.XXXA Exposure to other specified factors, initial encounter; L98.9 Disorder of the skin and subcutaneous tissue, unspecified; I25.10 Atherosclerotic heart disease of native coronary artery without angina pectoris; Z98.890 Other specified postprocedural states; Z88.8 Allergy status to other drugs, medicaments and biological substances; Z91.040 Latex allergy status
CPT/HCPCS: 99284; 36415; 87040; 85025; 85652; 86140; 80053; 73610; 73630; A9270